=== PATIENT | male | born 1980 | race Two or more races ===

== ENCOUNTER 2018-01-12 09:43 | Outpatient (CLI) | payer OTHER | END 2018-01-12 09:51 | disposition home or self-care (01) | LOC: SONOGRAMA 09:43 | DX: K76.0 Fatty (change of) liver, not elsewhere classified (principal) ==

== ENCOUNTER 2021-09-04 09:48 | Outpatient (CLI) | payer OTHER | END 2021-09-04 09:57 | disposition home or self-care (01) | LOC: SONOGRAMA 09:48 | PROVIDERS: ATTEND Internal Medicine Hepatology | DX: R10.11 Right upper quadrant pain (principal) ==